=== PATIENT | male | born 1995 | race Caucasian/White ===

== ENCOUNTER 2021-01-19 14:12 | Inpatient (IN) | payer OTHER, SELFPAY ==
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
[2021-01-19] MEDS: LORazepam 1 MG TABLET PO ×2 (15:47→21:15)
[2021-01-19] MEDS: OLANZapine ODT 10 MG TAB.RAPDIS 5 MG TRANSLINGU ×2 (15:47→21:17)
--- NOTE | 2021-01-19 15:53 | P.DS_ITS ---
DS: Providers Provider Date of Service: 02/02/21 Date of admission: 01/19/21 14:12 Primary care physician: None Physician DS: Diagnosis Discharge Diagnosis (1) Psychosis: Status: Acute DS: Medications Discharge Medications Home Medications: Previous Rx's Medication Instructions Recorded acetaminophen 650 mg PO Q6H PRN #30 tab 01/25/21 lorazepam 1 mg PO BID #30 tab 01/25/21 nicotine 21 mg TRANSDERMAL DAILY #30 ea 01/25/21 nicotine (polacrilex) 4 mg BUCCAL Q2H PRN #30 ea 01/25/21 olanzapine 5 mg TRANSLINGUAL DAILY #30 tab 01/25/21 olanzapine 10 mg TRANSLINGUAL BEDTIME #30 tab 01/25/21 Discharge Plan Discharge Patient Disposition: Home, Self-Care Discharge Diagnosis: Mdd with psychosis, versus Mood disorder Referrals: [facility] [Other] (Walk in if needed.) Maulik Baig (therapist) [Other] - 01/26/21 1:00 pm (Telehealth appointment. They will call you) Gifty Gonzalez (psychiatrist) [Other] - 03/21/21 12:40 pm (Telehealth appointment. They will call you) Gifty Gonzalez (psychiatrist) [Other] - 02/19/21 3:30 pm (Telehealth appointment. They will call you) Discharge Medications: New acetaminophen 325 mg Tablet 650 mg PO Q6H PRN (Reason: Headache/Pain Mild Scale (1-3)) Qty: 30 RF: 0 nicotine 21 mg/24 hr Patch 24 Hour 21 mg transdermal DAILY Qty: 30 RF: 0 olanzapine 10 mg Tablet,Disintegrating 10 mg translingual BEDTIME Qty: 30 RF: 0 olanzapine 10 mg Tablet,Disintegrating 5 mg translingual DAILY Qty: 30 RF: 0 lorazepam 1 mg Tablet 1 mg PO BID Qty: 30 RF: 0 nicotine (polacrilex) 4 mg Mini Lozenge 4 mg buccal Q2H PRN (Reason: Nicotine Cravings) Qty: 30 RF: 0 Discharge Orders: Discharge Order (Routine); Ordered 01/25/21 Ordered By: Christiana Prescott Diet: regular diet Activity on Discharge: As tolerated Stand Alone Forms: Patient Portal Discharge page, Community Support Care Plan Goals: 1. follow up with referrals 2. take medications as prescribed Health Concerns: 1. follow up with pcp Plan of Treatment: 1. go to nearest ED in event of emergency Assessment: pt with less AH, bright mood Discharge Date/Time: 01/25/21 14:41 Mental Status Exam Mental Status Exam Narrative: Appearance: causally groomed, in NAD behavior: calm, cooperative Psychomotor: no agitation or retardation noted Speech: clear, normal rate/rhythm/volume, spontaneous TP: linear TC: no overt psychosis, looking forward to return home AH/VH: none Delusions: none Insight/judgment: fair x 2. Memory/cog: alert, grossly intact to conversational testing.. DS: Summary Hospital Course Hospital Course: Mr. Fairbanks is a 25 year-old male with no previous hx of mental illness who was brought to [facility] ED by his GF of last 10 years due to bizarre behaviors for the past 3 days including gets a glaze look and looks confused. Per GF Mr. Fairbanks appeared to have auditory hallucinations in that patient asked GF several times if she could hear what he was hearing. In the ED, his utox was positive for cannabis. He had brain CT scan completed at [facility] on 01/18/2021 which did not show significant intracranial abnormality. Laboratory data from [facility]- CBC with diff wnl, CMP including electrolytes, Cr, AST/ALT wnl. On the unit, pt presents as increasingly anxious and agitated. He appears to become even more anxious and hypervigilant as this staff writer asks questions. Pt is clenching fist at times, appears hyperventilating. He was told that he can contact family and asked for the phone but then did not move from the chair he was sitting on. On arrival to the unit, he tried to elope but was redirected. He did not answer most questions asked and was increasingly getting more anxious and tense at which point interview was ended and Mr. Fairbanks was offered ativan and olanzapine. Past Psychiatric History: Inpatient: no previous inpatient admission OP: none- apparently in the past treated for depression. medication trials: unknown Medical Evaluation Reviewed: Yes HOSPITAL COURSE On the unit, Mr. Fairbanks presented as very paranoid, agitated, guarded. He did not talk much but was posturing and asking to be discharged. He was started on olanzapine and ativan. He gradually presented as much less paranoid and guarded. He reported feeling like people were after him and he didn't known who he can trust. He denied SI/HI. He was sleeping and eating, which he was not doing for past week prior to coming to the unit. He agreed to be referred to OP psychiatric services. Collateral information gathered from his GF who reported pt appeared in much improved condition and close to baseline. She denied safety concerns at time of discharge. There were no incidences of disruptive behaviors nor use of restraints. Status at Discharge Cognitive/behavioral status at discharge: Much less guarded, less paranoid. No SI/HI. Thought process more coherent and organized. Increase insight into psychotic symptoms and need for OP psychiatric tx. Functional status at discharge: independent ambulation Overall status at discharge: patient is progressing back to baseline Time Spent with Patient Time attestation: Total time spent providing and/or coordinating discharge services:
[2021-01-19 15:59] VITALS: BP 126/84; PULSE 112; TEMP 35.7; O2SAT 93
[2021-01-19 16:26] VITALS: BMI 35.2
[2021-01-19 18:00] VITALS: BP 119/60; PULSE 109; TEMP 36.7; O2SAT 93
--- NOTE | 2021-01-19 19:57 | PC.ADMIT ---
Patient arrived on unit at 1400 via wheelchair from [facility].He tried to run out the door when he first arrived. Diagnosis is Unspecified Depression. Admission status is 12b. Patient refused to sign conditional /Voluntary but did sign all admission forms/consents. The patient was initially brought to [facility] after girlfriend reported altered mental status. At that time it is reported he was observed to be in a catatonic state. He was exhibiting delayed responses, thought blocking and bizarre behaviors. His girlfriend reported he was sent home from work, forgot and went back to work. During admission assessment the patient was slightly agitated but cooperative. He asked repeatedly where is my girlfriend and stated I don't know why I am here . He also stated I am hearing voices but I don't know what they are saying . No mental health provider or psych history provided. The patient also does not have a PCP. The patient stated, I smoke marijuana pretty much eveyday and I smoke about 1 pack of cigarettes a day . A smoking cessation consult was ordered. The patient was fixated on his significant other and children and when he would be leaving. At this time he is resting comfortably in his bed. He is on 15 minute checks.
--- NOTE | 2021-01-20 07:50 | HO.PSYCHPN ---
Subjective Subjective Date of Service: 01/20/21 Reason For Visit: Unspecified Depressive Disorder Subjective Notes: 3 Day Healthcare Proxy: No Guardianship: No Interim History: pt soft spoken and confused. states he doesn't know why he's in hospital. Focused on going home. Perseveration on getting in touch with GF who ultimately visited him on nit and pt calmer with her visist. Denies depression denies auditory or visual hallucinations but appears to be responding to internal stiimuli. did not sleep last night Medication Compliance: Yes Side effects from medications: No Attending Groups: No Review of Systems Review of Systems Yes Unobtainable due to mental status Mental Status Exam Mental Status Exam Narrative: Appearance: causally groomed, sitting in chair, anxious behavior: guarded, hypervigilant Psychomotor: restless Speech: single word answers, minimally spontaneous, soft spoken and not completing thoughts TP: repeats some words TC: minimally verbal, wanting to call GF-preoccupied AH/VH: appears internally preoccupied Delusions: no verbalization of delusional content but pt appears increasingly hypervigilant Insight/judgment: impaired x 2. Memory/cog: alert, unable to report where he is, year or month. impaired secondary to psychiatric symptoms. Diagnostics Vital Signs (24Hr): Vital Signs - 24 hr 01/19/21 15:59 01/19/21 18:00 Temperature 96.2 F L 98.0 F Pulse Rate 112 H 109 H Blood Pressure 126/84 119/60 Pulse Oximetry 93 93 Body Mass Index 35.2 Medications Medications Current Medications Generic Name Dose Route Start Last Admin Trade Name Freq PRN Reason Stop Dose Admin Acetaminophen 650 mg 01/19/21 12:15 Acetaminophen 325 Mg Tablet PO Q6H PRN Headache/Pain Mild Scale (1-3) Al Hydroxide/Mg Hydroxide 30 ml 01/19/21 12:15 Magnesium Hydrox/Alum Hydrox 30 Ml Oral.Susp PO Q6H PRN Heartburn/Nausea Hydroxyzine HCl 50 mg 01/19/21 12:15 Hydroxyzine Hcl 25 Mg Tablet PO Q6H PRN Anxiety Lorazepam 1 mg 01/19/21 15:24 Lorazepam 1 Mg Tablet PO Q4H PRN Anxiety Lorazepam 1 mg 01/19/21 15:30 01/19/21 21:15 Lorazepam 1 Mg Tablet PO 1 mg BID CHINO Administration Magnesium Hydroxide 30 ml 01/19/21 12:15 Milk Of Magnesia 30 Ml Oral.Susp PO DAILY PRN Constipation Olanzapine 5 mg 01/19/21 15:30 01/19/21 21:17 Olanzapine Odt 10 Mg Tab.Rapdis TRANSLINGU 5 mg BID CHINO Administration Olanzapine 10 mg 01/19/21 15:28 Olanzapine Odt 10 Mg Tab.Rapdis TRANSLINGU Q6H PRN agitation Trazodone HCl 50 mg 01/19/21 12:15 Trazodone Hcl 50 Mg Tablet PO BEDTIME PRN Insomnia Allergies Allergies Allergy/AdvReac Type Severity Reaction Status Date / Time No Known Allergies Allergy Verified 01/19/21 12:14 Assessment & Plan Assessment & Plan (1) Psychosis: Status: Acute Code(s): F29 - Unspecified psychosis not due to a substance or known physiological condition Assessment and Plan: 1. schedule ativan 1 mg po BID 2. Increase olanzapine to 5mg QAM and 10 mg at HS daily 3. PRN medications for agitation including olanzapine and ativan. Greater than 50% of the session was spent on counseling and/or coordination of care Patient educated on: medication risk/benefits Informed Consent: further education needed Reason for contiued inpatient stay Substantial Risk for: inability to function and rapid decompensation
[2021-01-20] MEDS: LORazepam 1 MG TABLET PO ×2 (08:57→20:07)
[2021-01-20] MEDS: OLANZapine ODT 10 MG TAB.RAPDIS 5 MG TRANSLINGU (08:57)
[2021-01-20] MEDS: Nicotine 21 MG PATCH.TD24 TRANSDERMA (16:42)
[2021-01-20 19:27] VITALS: BP 121/75; PULSE 105; TEMP 36.7
[2021-01-20] MEDS: Acetaminophen 325 MG TABLET 650 MG PO (20:07)
[2021-01-20] MEDS: OLANZapine ODT 10 MG TAB.RAPDIS TRANSLINGU (20:07)
[2021-01-20] MEDS: traZODone HCL 50 MG TABLET PO (20:08)
[2021-01-21] MEDS: Nicotine 21 MG PATCH.TD24 TRANSDERMA (08:19)
[2021-01-21] MEDS: OLANZapine ODT 10 MG TAB.RAPDIS 5 MG TRANSLINGU (08:20)
[2021-01-21] MEDS: LORazepam 1 MG TABLET PO ×2 (08:20→21:21)
[2021-01-21] MEDS: Acetaminophen 325 MG TABLET 650 MG PO (15:04)
--- NOTE | 2021-01-21 17:24 | HO.PSYCHPN ---
Subjective Subjective Date of Service: 01/21/21 Reason For Visit: Unspecified Depressive Disorder Interim History: pt still soft spoken and confused. At times not finishing his sentences; states he doesn't know why he's in hospital. Focused on going home. Denies feeling depressed but shows psychomotor slowing, cognitive slowing, low energy, sad. denies auditory or visual hallucinations but appears to be responding to internal stiimuli. Slept a little better lastnight but still reports awake several times. Review of Systems Review of Systems Yes Unobtainable due to mental status Mental Status Exam Mental Status Exam Narrative: Appearance: causally groomed, sitting in chair, anxious behavior: guarded, hypervigilant Psychomotor: restless Speech: single word answers, minimally spontaneous, soft spoken and not completing thoughts TP: repeats some words TC: minimally verbal, wanting to call GF-preoccupied AH/VH: appears internally preoccupied Delusions: no verbalization of delusional content but pt appears increasingly hypervigilant Insight/judgment: impaired x 2. Memory/cog: alert, unable to report where he is, year or month. impaired secondary to psychiatric symptoms. Diagnostics Vital Signs (24Hr): Vital Signs - 24 hr 01/20/21 19:27 Temperature 98.1 F Pulse Rate 105 H Blood Pressure 121/75 Body Mass Index 35.2 Medications Medications Current Medications Generic Name Dose Route Start Last Admin Trade Name Evan PRN Reason Stop Dose Admin Acetaminophen 650 mg 01/19/21 12:15 01/21/21 15:04 Acetaminophen 325 Mg Tablet PO 650 mg Q6H PRN Administration Headache/Pain Mild Scale (1-3) Al Hydroxide/Mg Hydroxide 30 ml 01/19/21 12:15 Magnesium Hydrox/Alum Hydrox 30 Ml Oral.Susp PO Q6H PRN Heartburn/Nausea Hydroxyzine HCl 50 mg 01/19/21 12:15 Hydroxyzine Hcl 25 Mg Tablet PO Q6H PRN Anxiety Lorazepam 1 mg 01/19/21 15:24 Lorazepam 1 Mg Tablet PO Q4H PRN Anxiety Lorazepam 1 mg 01/19/21 15:30 01/21/21 08:20 Lorazepam 1 Mg Tablet PO 1 mg BID CHINO Administration Magnesium Hydroxide 30 ml 01/19/21 12:15 Milk Of Magnesia 30 Ml Oral.Susp PO DAILY PRN Constipation Nicotine 21 mg 01/20/21 16:00 01/21/21 08:19 Nicotine 21 Mg Patch.Td24 TRANSDERMA 21 mg DAILY CHINO Administration Nicotine Polacrilex 4 mg 01/20/21 19:27 01/20/21 20:08 Nicotine Polacrilex 4 Mg Lozenge BUCCAL 4 mg Q2H PRN Administration Nicotine Cravings Olanzapine 5 mg 01/21/21 09:00 01/21/21 08:20 Olanzapine Odt 10 Mg Tab.Rapdis TRANSLINGU 5 mg DAILY CHINO Administration Olanzapine 10 mg 01/20/21 21:00 01/20/21 20:07 Olanzapine Odt 10 Mg Tab.Rapdis TRANSLINGU 10 mg BEDTIME CHINO Administration Olanzapine 10 mg 01/20/21 18:09 Olanzapine Odt 10 Mg Tab.Rapdis TRANSLINGU DAILY PRN agitation Trazodone HCl 50 mg 01/19/21 12:15 01/20/21 20:08 Trazodone Hcl 50 Mg Tablet PO 50 mg BEDTIME PRN Administration Insomnia Allergies Allergies Allergy/AdvReac Type Severity Reaction Status Date / Time No Known Allergies Allergy Verified 01/19/21 12:14 Assessment & Plan Assessment & Plan (1) Psychosis: Status: Acute Code(s): F29 - Unspecified psychosis not due to a substance or known physiological condition Assessment and Plan: Continue plan bleow: 1. schedule ativan 1 mg po BID 2. Increase olanzapine to 5mg QAM and 10 mg at HS daily 3. PRN medications for agitation including olanzapine and ativan. Greater than 50% of the session was spent on counseling and/or coordination of care Reason for contiued inpatient stay Substantial Risk for: harm to self, inability to function, rapid decompensation and med/psych decompensation
[2021-01-21 18:00] VITALS: BP 126/73; PULSE 98; TEMP 36.6; O2SAT 97
[2021-01-21] MEDS: hydrOXYzine HCL 25 MG TABLET 50 MG PO (19:01)
[2021-01-21] MEDS: OLANZapine ODT 10 MG TAB.RAPDIS TRANSLINGU (21:21)
[2021-01-21] MEDS: traZODone HCL 50 MG TABLET PO (21:25)
[2021-01-22] MEDS: Nicotine 21 MG PATCH.TD24 TRANSDERMA (09:56)
[2021-01-22] MEDS: OLANZapine ODT 10 MG TAB.RAPDIS 5 MG TRANSLINGU (09:57)
[2021-01-22] MEDS: LORazepam 1 MG TABLET PO ×2 (09:58→20:46)
[2021-01-22] MEDS: Acetaminophen 325 MG TABLET 650 MG PO (09:58)
--- NOTE | 2021-01-22 17:38 | HO.PSYCHPN ---
Subjective Subjective Date of Service: 01/23/21 Reason For Visit: Unspecified Depressive Disorder Interim History: Pt much more talkative and coherent although with a blank stare at times. He reports hearing voices telling him to accept his sexuality which he recently apparently told his GF that he is bisexual. Pt reports some confusion as to why he is here in a psychiatric hospital. He reports less anxious mood. He is not as guarded and hypervigilant. He denies SI/HI. He reports improved sleep with current medications. More visible in the unit, but mostly in bedroom. Review of Systems Review of Systems Yes Unobtainable due to mental status Mental Status Exam Mental Status Exam Narrative: Appearance: causally groomed, sitting in chair, anxious behavior: guarded, hypervigilant Psychomotor: restless Speech: single word answers, minimally spontaneous, soft spoken and not completing thoughts TP: repeats some words TC: minimally verbal, wanting to call GF-preoccupied AH/VH: appears internally preoccupied Delusions: no verbalization of delusional content but pt appears increasingly hypervigilant Insight/judgment: impaired x 2. Memory/cog: alert, unable to report where he is, year or month. impaired secondary to psychiatric symptoms. Diagnostics Vital Signs (24Hr): Vital Signs - 24 hr 01/22/21 18:00 01/23/21 06:00 01/23/21 17:20 Temperature 98.0 F 96.8 F 98 F Pulse Rate 122 H 72 111 H Respiratory Rate 20 Blood Pressure 136/85 106/58 L 121/79 Pulse Oximetry 99 97 Body Mass Index 35.2 Medications Medications Current Medications Generic Name Dose Route Start Last Admin Trade Name Jackq PRN Reason Stop Dose Admin Acetaminophen 650 mg 01/19/21 12:15 01/23/21 09:31 Acetaminophen 325 Mg Tablet PO 650 mg Q6H PRN Administration Headache/Pain Mild Scale (1-3) Al Hydroxide/Mg Hydroxide 30 ml 01/19/21 12:15 Magnesium Hydrox/Alum Hydrox 30 Ml Oral.Susp PO Q6H PRN Heartburn/Nausea Hydroxyzine HCl 50 mg 01/19/21 12:15 01/21/21 19:01 Hydroxyzine Hcl 25 Mg Tablet PO 50 mg Q6H PRN Administration Anxiety Lorazepam 1 mg 01/19/21 15:24 Lorazepam 1 Mg Tablet PO Q4H PRN Anxiety Lorazepam 1 mg 01/19/21 15:30 01/23/21 09:33 Lorazepam 1 Mg Tablet PO 1 mg BID CHINO Administration Magnesium Hydroxide 30 ml 01/19/21 12:15 Milk Of Magnesia 30 Ml Oral.Susp PO DAILY PRN Constipation Nicotine 21 mg 01/20/21 16:00 01/23/21 09:39 Nicotine 21 Mg Patch.Td24 TRANSDERMA 21 mg DAILY CHINO Administration Nicotine Polacrilex 4 mg 01/20/21 19:27 01/22/21 10:02 Nicotine Polacrilex 4 Mg Lozenge BUCCAL 4 mg Q2H PRN Administration Nicotine Cravings Olanzapine 5 mg 01/21/21 09:00 01/23/21 09:33 Olanzapine Odt 10 Mg Tab.Rapdis TRANSLINGU 5 mg DAILY CHINO Administration Olanzapine 10 mg 01/20/21 21:00 01/22/21 20:46 Olanzapine Odt 10 Mg Tab.Rapdis TRANSLINGU 10 mg BEDTIME CHINO Administration Olanzapine 10 mg 01/22/21 16:44 Olanzapine Odt 10 Mg Tab.Rapdis TRANSLINGU Q6H PRN agitation Trazodone HCl 50 mg 01/19/21 12:15 01/22/21 20:47 Trazodone Hcl 50 Mg Tablet PO 50 mg BEDTIME PRN Administration Insomnia Allergies Allergies Allergy/AdvReac Type Severity Reaction Status Date / Time No Known Allergies Allergy Verified 01/19/21 12:14 Assessment & Plan Assessment & Plan (1) Psychosis: Status: Acute Code(s): F29 - Unspecified psychosis not due to a substance or known physiological condition Assessment and Plan: Continue plan bleow: 1. Continue ativan 1 mg po BID 2. Continue olanzapine to 5mg QAM and 10 mg at HS daily 3. PRN medications for agitation including olanzapine and ativan. Greater than 50% of the session was spent on counseling and/or coordination of care Reason for contiued inpatient stay Substantial Risk for: inability to function
[2021-01-22 18:00] VITALS: BP 136/85; PULSE 122; TEMP 36.7; O2SAT 99
[2021-01-22] MEDS: OLANZapine ODT 10 MG TAB.RAPDIS TRANSLINGU (20:46)
[2021-01-22] MEDS: traZODone HCL 50 MG TABLET PO (20:47)
[2021-01-23 06:00] VITALS: BP 106/58; PULSE 72; RESP 20; TEMP 36; O2SAT 97
[2021-01-23] MEDS: Acetaminophen 325 MG TABLET 650 MG PO ×2 (09:31→20:56)
[2021-01-23] MEDS: OLANZapine ODT 10 MG TAB.RAPDIS 5 MG TRANSLINGU (09:33)
[2021-01-23] MEDS: LORazepam 1 MG TABLET PO ×2 (09:33→20:40)
[2021-01-23] MEDS: Nicotine 21 MG PATCH.TD24 TRANSDERMA (09:39)
[2021-01-23 17:20] VITALS: BP 121/79; PULSE 111; TEMP 36.6
--- NOTE | 2021-01-23 17:42 | HO.PSYCHPN ---
Subjective Subjective Date of Service: 01/23/21 Reason For Visit: Unspecified Depressive Disorder Interim History: Pt with brighter affect, and more talkative. He reports that about one month he disclosed to GF that he was bisexual. He reports he wants to be with GF and was afraid to tell her. However, GF has been supportive and has shown understanding. He reports he feels much less anxious. He reports less AH. He reports sleeping and eating better. He has been more visible in the unit. Has attended more groups. No behavioral concerns. Review of Systems Review of Systems Yes Unobtainable due to mental status Mental Status Exam Mental Status Exam Narrative: Appearance: causally groomed, sitting in chair, anxious behavior: guarded, hypervigilant Psychomotor: restless Speech: single word answers, minimally spontaneous, soft spoken and not completing thoughts TP: repeats some words TC: minimally verbal, wanting to call GF-preoccupied AH/VH: appears internally preoccupied Delusions: no verbalization of delusional content but pt appears increasingly hypervigilant Insight/judgment: impaired x 2. Memory/cog: alert, unable to report where he is, year or month. impaired secondary to psychiatric symptoms. Diagnostics Vital Signs (24Hr): Vital Signs - 24 hr 01/22/21 18:00 01/23/21 06:00 01/23/21 17:20 Temperature 98.0 F 96.8 F 98 F Pulse Rate 122 H 72 111 H Respiratory Rate 20 Blood Pressure 136/85 106/58 L 121/79 Pulse Oximetry 99 97 Body Mass Index 35.2 Medications Medications Current Medications Generic Name Dose Route Start Last Admin Trade Name Evan PRN Reason Stop Dose Admin Acetaminophen 650 mg 01/19/21 12:15 01/23/21 09:31 Acetaminophen 325 Mg Tablet PO 650 mg Q6H PRN Administration Headache/Pain Mild Scale (1-3) Al Hydroxide/Mg Hydroxide 30 ml 01/19/21 12:15 Magnesium Hydrox/Alum Hydrox 30 Ml Oral.Susp PO Q6H PRN Heartburn/Nausea Hydroxyzine HCl 50 mg 01/19/21 12:15 01/21/21 19:01 Hydroxyzine Hcl 25 Mg Tablet PO 50 mg Q6H PRN Administration Anxiety Lorazepam 1 mg 01/19/21 15:24 Lorazepam 1 Mg Tablet PO Q4H PRN Anxiety Lorazepam 1 mg 01/19/21 15:30 01/23/21 09:33 Lorazepam 1 Mg Tablet PO 1 mg BID CHINO Administration Magnesium Hydroxide 30 ml 01/19/21 12:15 Milk Of Magnesia 30 Ml Oral.Susp PO DAILY PRN Constipation Nicotine 21 mg 01/20/21 16:00 01/23/21 09:39 Nicotine 21 Mg Patch.Td24 TRANSDERMA 21 mg DAILY CHINO Administration Nicotine Polacrilex 4 mg 01/20/21 19:27 01/22/21 10:02 Nicotine Polacrilex 4 Mg Lozenge BUCCAL 4 mg Q2H PRN Administration Nicotine Cravings Olanzapine 5 mg 01/21/21 09:00 01/23/21 09:33 Olanzapine Odt 10 Mg Tab.Rapdis TRANSLINGU 5 mg DAILY CHINO Administration Olanzapine 10 mg 01/20/21 21:00 01/22/21 20:46 Olanzapine Odt 10 Mg Tab.Rapdis TRANSLINGU 10 mg BEDTIME CHINO Administration Olanzapine 10 mg 01/22/21 16:44 Olanzapine Odt 10 Mg Tab.Rapdis TRANSLINGU Q6H PRN agitation Trazodone HCl 50 mg 01/19/21 12:15 01/22/21 20:47 Trazodone Hcl 50 Mg Tablet PO 50 mg BEDTIME PRN Administration Insomnia Allergies Allergies Allergy/AdvReac Type Severity Reaction Status Date / Time No Known Allergies Allergy Verified 01/19/21 12:14 Assessment & Plan Assessment & Plan (1) Psychosis: Status: Acute Code(s): F29 - Unspecified psychosis not due to a substance or known physiological condition Assessment and Plan: Continue plan bleow: 1. Continue ativan 1 mg po BID 2. Continue olanzapine to 5mg QAM and 10 mg at HS daily 3. PRN medications for agitation including olanzapine and ativan. Greater than 50% of the session was spent on counseling and/or coordination of care Reason for contiued inpatient stay Substantial Risk for: inability to function and rapid decompensation
[2021-01-23] MEDS: OLANZapine ODT 10 MG TAB.RAPDIS TRANSLINGU (20:40)
[2021-01-24 06:00] VITALS: BP 118/55; PULSE 73; RESP 16; TEMP 37.2; O2SAT 98
[2021-01-24] MEDS: Nicotine 21 MG PATCH.TD24 TRANSDERMA (09:12)
[2021-01-24] MEDS: OLANZapine ODT 10 MG TAB.RAPDIS 5 MG TRANSLINGU (09:13)
[2021-01-24] MEDS: LORazepam 1 MG TABLET PO (09:13)
[2021-01-24] MEDS: Acetaminophen 325 MG TABLET 650 MG PO (17:07)
[2021-01-24 17:33] VITALS: BP 117/58; PULSE 82; TEMP 36.6
[2021-01-24] MEDS: OLANZapine ODT 10 MG TAB.RAPDIS TRANSLINGU (20:51)
[2021-01-24] MEDS: traZODone HCL 50 MG TABLET PO (21:03)
[2021-01-25 06:00] VITALS: BP 122/63; PULSE 72; RESP 14; TEMP 35.9; O2SAT 99
[2021-01-25] MEDS: OLANZapine ODT 10 MG TAB.RAPDIS 5 MG TRANSLINGU (08:52)
[2021-01-25] MEDS: Nicotine 21 MG PATCH.TD24 TRANSDERMA (08:52)
[2021-01-25] MEDS: hydrOXYzine HCL 25 MG TABLET 50 MG PO (09:52)
[2021-01-25] MEDS: LORazepam 1 MG TABLET PO (11:04)
== END 2021-01-25 14:41 | disposition home or self-care (01) | DRG 751 ==
PROVIDERS: Admitting Provider Psychiatry & Neurology Psychiatry; Visit Provider Social Worker
DX: F29 Unspecified psychosis not due to a substance or known physiological condition (principal); F17.210 Nicotine dependence, cigarettes, uncomplicated; Z71.6 Tobacco abuse counseling; Z79.899 Other long term (current) drug therapy